=== PATIENT | female | born 1945 | race Caucasian/White ===

== ENCOUNTER 2016-07-12 17:34 | Emergency (ER) | payer BC ==
[~2016-07-12 17:34] MED LIST: ASAB PO; CARTIA XT120 MG/24 PO; CELEXA20 PO; COZ25 PO; DSS PO; ELIQUIS 5 MG TAB5 MG PO; FLECAINIDE50 MG PO; FLEX PO; LYRICA50 PO; METHOC500B OR; MEVACOR PO; NEUR400 PO; NEXIUM40 PO; NORV25 PO; P10 PO; ROXICODONE15 MG PO; SYN075 PO; VITAMIN D31000 UNIT PO; VOLTAREN1 % TOP; XANAX1 MG PO
[2016-07-12 18:13] LABS: BASOPHILS 0.6 %; BASOPHILS ABSOLUTE 0.04 10/3/uL (0.0-0.16); EOSINOPHILS 7.3 %; EOSINOPHILS ABSOLUTE 0.47 10/3/uL (0.0-0.53); ER CBC TAT 0 Hrs 05 Mins; HEMATOCRIT 40.5 % (36.0-48.0); HEMOGLOBIN 12.8 g/dL (12.0-16.0); IMMATURE GRANULOCYTES 0.2 %; IMMATURE GRANULOCYTES ABSOLUTE 0.01 10/3/uL (0.0-0.11); LYMPHOCYTES 23.5 %; LYMPHOCYTES ABSOLUTE 1.52 10/3/uL (0.67-4.30); MEAN CORPUS HGB CONC 31.6 g/dL (32.0-36.0); MEAN CORPUSCULAR HEMOGLOB 30.5 pg (26.0-34.0); MEAN CORPUSCULAR VOLUME 96.4 fL (80-100); MEAN PLATELET VOLUME 10.3 fL (9.2-13.0); MONOCYTES 8.3 %; MONOCYTES ABSOLUTE 0.54 10/3/uL (0.21-1.20); NEUTROPHILS 60.1 %; NEUTROPHILS ABSOLUTE 3.89 10/3/uL (2.02-8.40); PLATELET COUNT 204 10/3/uL (150-400); RBC DISTRIBUTION WIDTH 15.6 % (12.0-16.0); WHITE BLOOD CELLS 6.5 10/3/uL (4.5-10.5)
[2016-07-12 18:14] LABS: MANUAL DIFF NO %
[2016-07-12 18:24] LABS: INTERNATIONAL NORMAL RATI 1.4 UNITS (-); PARTIAL THROMBO TIME 30.9 SEC (22.5-37.2)
[2016-07-12 18:25] LABS: PROTIME (NOT ORD) 17.1 SEC (12.0-14.5)
[2016-07-12 18:28] LABS: BUN (BLOOD UREA NITROGEN) 35 MG/DL (6-23); CALCIUM, SERUM 8.9 MG/DL (8.5-10.4); CHEST PAIN PROFILE TAT 0 Hrs 20 Mins; CHLORIDE, SERUM 101 MMOL/L (96-112); CO2 (CARBON DIOXIDE) 31 MMOL/L (24-34); CREATININE 3.44 MG/DL (0.55-1.02); GFR AFRICAN AMERICAN 15 ML/MIN (>=60); GFR NON AFRICAN AMERICAN 13 ML/MIN (>=60); GLUCOSE, SERUM 101 MG/DL (60-99); SODIUM, SERUM 141 MMOL/L (135-148); TROPONIN I <0.02 NG/ML (<0.05)
[2016-07-13] MEDS ORDERED: COZ25 PO (15:07)
[2016-07-13] MEDS ORDERED: PROAIR HFA INH (15:10)
[2016-07-13] MEDS ORDERED: SYN075 PO (15:10)
[2016-07-13] MEDS ORDERED: CLINDA150 PO (15:12)
[2016-07-13] MEDS ORDERED: HYDROCHLOROT12.5 MG PO (15:13)
[2016-07-13] MEDS ORDERED: IBU800 PO (15:13)
== END 2016-07-12 22:04 | disposition left against medical advice (07) ==
LOC: ER 17:34
PROVIDERS: Emergency Medicine
DX: Z53.21 Procedure and treatment not carried out due to patient leaving prior to being seen by health care provider (principal)
CPT/HCPCS: 71020; 80048; 83735; 84484; 85025; 85610; 85730; 93005

== ENCOUNTER 2016-07-13 10:13 | Inpatient (IN) | payer BC ==
--- NOTE | ~2016-07-13 | DS ---
Discharge Summary [facility] [address] [place]. [address] NAME: LISA LANG : 47 STATUS : ADM IN [facility]#: [id number] AGE: 71 ADM/REG DATE : 07/13/16 MR#: [id number] REPORT SERV DATE: 07/16/16 DICTATED BY: FIORDALIZA SCHNEIDER DATE: 07/16/16 REPORT STATUS : Draft TRANSCRIBED BY: MODL DATE: 07/16/16 ADMISSION DATE: 07/13/2016 DISCHARGE DATE: 07/16/2016 FINAL HOSPITAL DIAGNOSES: 1. Acute kidney injury, felt secondary to medications, probably ibuprofen. 2. Back and neck pain, acute on chronic, resolved. 3. Bronchitis. 4. Low hemoglobin, felt to be lab error. 5. Elevated D-dimer. The patient on chronic anticoagulants, felt to be not clinically significant and due to her acute kidney injury. PROCEDURES: 1. CT scan of the brain done on 07/13/2016 showing periventricular leukoencephalopathy, no acute intracranial hemorrhage. This was in an addendum report. There was mild cerebral and cerebellar atrophy. CT chest without contrast showing no acute intrathoracic or intraabdominal process identified. No abnormal fluid collection. CT abdomen and pelvis done on 07/13/2016 showing no acute intraabdominal process identified. 2. Renal ultrasound done on 07/14/2016 noting increased renal cortical echotexture, equalized with the liver, compatible with component of medical renal disease. No obstruction or hydronephrosis is seen on either side. Smaller size of the left kidney may be congenital variant or related to previous insult. CURRENT PHYSICAL FINDINGS AND HISTORY OF PRESENT ILLNESS: Please see dictated H and P by myself. In brief, the patient is a 71-year-old female who presented to the emergency department with complaint of acute kidney injury, back and neck pain, and drop in her hemoglobin. Vital signs at the time of admission, blood pressure was 94/60, subsequent blood pressures were in the 100s/50s, returning to normal numbers on 07/14/2016. No fever during her hospital stay. No tachycardia noted. Average heart rate was in the 60s to 70s. LABORATORY DATA: Her first creatinine was 3.44, this was done on the evening of 07/12/2016. Subsequent creatinines were 3.81 on 07/13/2016; 2.89 on 07/14/2016; 1.26 on 07/15/2016; and 1.19 on 07/16/2016. No other significant electrolyte abnormalities or hyperkalemia were noted. Troponins were less than 0.02 x3. BNP was 256.5. CBC showed a normal white count on multiple draws. Initial hemoglobin was 12.8 on 07/12/2016; 9.5 on 07/13/2016; 13 on a recheck 2 hours later on 07/13/2016; and 11.1 and 11.3 on 07/14/2016 and 07/16/2016, respectively. D-dimer was mildly elevated at 0.7 with a normal of 0.5. HOSPITAL COURSE: The patient had come up to the emergency room on 07/12/2016 feeling ill. She did have lab work done but did not stay for a physician visit. She returned on 07/13/2016 and was noted to have complaints of back and neck pain. The kidney function was noted and her hemoglobin was actually markedly decreased from her initial presentation the evening before. She did undergo full CT scan without contrast, and her repeat hemoglobin was actually more in line with her norm, suggesting that the 9.5 was a lab error. However, on addressing her renal function, she had been taking some 800 mg of ibuprofen, the majority Discharge Summary [address] [address] NAME: LISA LANG : 47 STATUS : ADM IN PAT#: [id number] AGE: 71 ADM/REG DATE : 07/13/16 MR#: [id number] REPORT SERV DATE: 07/16/16 DICTATED BY: FIORDALIZA SCHNEIDER DATE: 07/16/16 REPORT STATUS : Draft TRANSCRIBED BY: DELORIS DATE: 07/16/16 of a bottle for her pain. The patient was admitted. She was started on IV fluids. Any potentially nephrotoxic agents were held. Her Cardizem was reduced as her blood pressure was low, but fortunately had no uncontrolled atrial fibrillation. The patient's renal function started to improve. Her pain started to improve and she was overall doing better. There were no signs of obstruction or secondary problem for her renal insufficiency. Her Eliquis was temporarily held; however, when her H and H were known stable and her kidney function was improving, it was restarted. Her Cardizem was also titrated back up, but her NSAIDs and ARB were not re-initiated. Through the course of the patient's hospital stay, again, she had no problems with her fibrillation, her neurological symptoms completely resolved, her renal function normalized, her blood pressures remained stable, and she was felt stable for discharge. DISPOSITION: She is discharged home. DISCHARGE INSTRUCTIONS: News medications are doxycycline 100 b.i.d. for some bronchitis symptoms she has been having, Eliquis 5 b.i.d., Celexa 20, Cardizem 120 b.i.d., flecainide 50 b.i.d., Synthroid 75, Mevacor 20, Nexium 40, Percocet 15 four times a day, Voltaren gel topical p.r.n., Xanax 1 mg t.i.d., Neurontin 400 t.i.d., vitamin D3 at 1000 daily, ProAir inhaler, hydrochlorothiazide 12.5 p.r.n. She will not resume her Cozaar 25 at this time. She will not resume her clindamycin. She will not resume her ibuprofen. I have asked her to set a followup appointment with Dr. Walsh. I am not certain if she is on the ARB for hypertension or heart failure. I have asked her to follow up with her PCP, Dr. Conklin, to make sure her renal function remains stable. There does not seem to be a secondary process involved, but if she is placed back on her ARB and her creatinine worsens, she may have some secondary pathology. She is to return for any recurrent symptoms. TLF/MODL Fiordaliza Schneider M.D. / [id number] CC: Varghese Vasquez M.D.
--- NOTE | ~2016-07-13 | HP ---
History And Physical [facility] [id number] [place]. [address] NAME: LISA LANG : 47 STATUS : ADM IN [facility]#: [id number] AGE: 71 ADM/REG DATE : 07/13/16 MR#: [id number] REPORT SERV DATE: 07/13/16 DICTATED BY: FIORDALIZA SCHNEIDER DATE: 07/13/16 REPORT STATUS : Draft TRANSCRIBED BY: MODL DATE: 07/13/16 DATE OF ADMISSION: 07/13/2016 CHIEF COMPLAINT: Back and neck pain. HISTORY OF PRESENT ILLNESS: The patient is a 71-year-old female. She has a past medical history significant for atrial fib, chronic back pain, and recent removal of a melanoma. She presented to the emergency department last evening with complaint of onset of back pain. She states her symptoms began around 4:00 a.m. yesterday morning. She woke up with pain in her back, which seemed to go up into her neck, much more intense than her normal back pain now that she has. She was hoping her pain would go away. She waited at home several hours. When it did not resolve, she presented to the emergency department here. The patient reports having had lab work and x-rays, but she did not stay to be seen. She decided to go back home and make an appointment with her physician this morning. When she went to her physician's office, she states they felt she was pale, ill. She complained of dizziness and the level of pain, so they referred her back to the emergency room. On evaluation here, she was initially noted to have a low hemoglobin of 9.5 and an elevated D-dimer of 0.7. She was also noted on her lab work last evening and today to be in acute renal failure with a creatinine in excess of 3 with previous normal numbers back in April at least here. Repeat hemoglobin was normal. CT scans did not show any evidence of obvious bleed or obvious neurological abnormality. The patient currently feels better. Her symptoms are not completely resolved. She still has some tolerable back and neck pain, and she states she is having some difficulty swallowing, although she states that has been going on for the past several days, and remotely has had some dysphagia over a longer period of time. 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 She has transiently noted some low blood pressure and dizziness also. PAST MEDICAL HISTORY: As covered above. PAST SURGICAL HISTORY: Hip surgery, pacemaker placement, back surgery from Dr. Trivedi, hysterectomy, melanoma removal, and cataract. CURRENT MEDICATIONS: Albuterol inhaler, Xanax 1 mg t.i.d., Eliquis 5 b.i.d., vitamin D 1000, Celexa 20, clindamycin 300 t.i.d. x7 days, Voltaren gel, Cartia XT 120 b.i.d., Nexium 40, flecainide 50 every 12 hours, Neurontin 400 t.i.d., hydrochlorothiazide 12.5, Motrin 800 t.i.d., Synthroid 75, Cozaar 25, Mevacor 20, Percocet 15 four times a day. ALLERGIES: PENICILLIN AND SULFA. FAMILY HISTORY: Both parents . Mother had heart problems. Father from a gunshot wound. SOCIAL HISTORY: She is a nondrinker and nonsmoker. History And Physical [address] [address] NAME: LISA LANG : 47 STATUS : ADM IN [facility]#: [id number] AGE: 71 ADM/REG DATE : 07/13/16 MR#: [id number] REPORT SERV DATE: 07/13/16 DICTATED BY: FIORDALIZA SCHNIEDER DATE: 07/13/16 REPORT STATUS : Draft TRANSCRIBED BY: DELORIS DATE: 07/13/16 REVIEW OF SYSTEMS: HEENT: Dizziness, dysphagia. CARDIOVASCULAR: No chest pain, palpitations. PULMONARY: No shortness of breath. GI: No nausea or vomiting. : She reports no dysuria or difficulty voiding. NEUROMUSCULOSKELETAL: As covered in HPI. Otherwise, review of systems is negative. PHYSICAL EXAMINATION: VITAL SIGNS: BP initially was 100/57, temperature 97.7, respirations 16, pulse 72, sat 96%. GENERAL: She is awake, alert, oriented, coherent, verbal, no acute distress. HEENT: Normocephalic, atraumatic. Sclerae nonicteric. NECK: Supple. HEART: Regular rate and rhythm. LUNGS: Clear to auscultation. ABDOMEN: Nontender, nondistended. EXTREMITIES: Without edema. No signs of obvious DVT. NEUROLOGICAL: She has normal mentation. Grossly normal cranial nerves. EXTREMITIES: Moves all extremities. LABORATORY DATA: Sodium 142, potassium 5.1, chloride 106, CO2 of 27, BUN and creatinine 41 and 3.81, glucose 88, troponin is 0.02. Creatinine was 1.42 in April. White count 6, H and H 13 and 40 with platelets 146. D-dimer was slightly elevated at 0.7. CT head showed per the ER physician, no blood, no grossly abnormal findings. Radiology is going to clarify CT report, which dictates no bleeding in the body of the report and noted bleeding on the impression, which is felt to be a typo. CT of the abdomen and pelvis was negative. Chest x ray showed mild vascular fullness, otherwise unremarkable. EKG shows atrial fibrillation and paced rhythm. ASSESSMENT AND PLAN: 1. Concerning her neurological symptoms, it does not sound like acute cerebrovascular accident or transient ischemic attack. She does not believe she has a MRI compatible pacemaker, but we will request records from [facility] to confirm. She, nevertheless, has been greater than a day with symptoms outside of the acute window. 2. Concerning her acute kidney injury, she has really not described voiding difficulty or significant decrease in intake. We will check a bladder scan. We will check a urinalysis, IV fluids. Hold her losartan and her any nephrotoxic agents and repeat. We will also monitor her blood pressure. 3. Concerning her back pain, reasonable treatment, we will consult Orthopedics if continues. 4. Concerning her mildly elevated D-dimer, she is very clear that her pain was not chest and not associated with shortness of breath. She states, it was low back, radiating up to her spine and back. I think her mildly elevated D-dimer is just secondary to her elevated creatinine. 5. Further recommendations pending clinical course. History And Physical [address] [place]. [address] NAME: LISA LANG : 47 STATUS : ADM IN [facility]#: [id number] AGE: 71 ADM/REG DATE : 07/13/16 MR#: [id number] REPORT SERV DATE: 07/13/16 DICTATED BY: FIORDALIZA SCHNEIDER DATE: 07/13/16 REPORT STATUS : Draft TRANSCRIBED BY: MODL DATE: 07/13/16 TLF/MODL Fiordaliza Schneider M.D. / [id number] CC: Luke Conklin M.D.
--- NOTE | ~2016-07-13 | DS ---
Discharge Summary [facility] [id number] [facility] [place]. [address] NAME: LISA LANG : 47 STATUS : ADM IN PAT#: [id number] AGE: 71 ADM/REG DATE : 07/13/16 MR#: [id number] REPORT SERV DATE: 07/16/16 DICTATED BY: FIORDALIZA SCHNEIDER DATE: 07/16/16 REPORT STATUS : Draft TRANSCRIBED BY: MODL DATE: 07/16/16 ADMISSION DATE: 07/13/2016 DISCHARGE DATE: ADDENDUM: To discharge summary #[id number]. TLF/MODL Fiordaliza Schneider M.D. / [id number] CC: Varghese Vasquez M.D. Joseph Powers, M.D.
[2016-07-13 11:58] LABS: BASOPHILS 0.2 %; BASOPHILS ABSOLUTE 0.01 10/3/uL (0.0-0.16); EOSINOPHILS 5.5 %; EOSINOPHILS ABSOLUTE 0.33 10/3/uL (0.0-0.53); ER CBC TAT 0 Hrs 08 Mins; LYMPHOCYTES 19.1 %; LYMPHOCYTES ABSOLUTE 1.15 10/3/uL (0.67-4.30); MEAN CORPUS HGB CONC 30.9 g/dL (32.0-36.0); MEAN CORPUSCULAR HEMOGLOB 30.7 pg (26.0-34.0); MEAN PLATELET VOLUME 10.4 fL (9.2-13.0); MONOCYTES ABSOLUTE 0.42 10/3/uL (0.21-1.20); NEUTROPHILS 68.2 %; PLATELET COUNT 146 10/3/uL (150-400); RBC DISTRIBUTION WIDTH 15.5 % (12.0-16.0)
[2016-07-13 12:02] LABS: HEMATOCRIT 30.7 % (36.0-48.0); HEMOGLOBIN 9.5 g/dL (12.0-16.0); RED CELL COUNT 3.09 10/6/uL (4.0-5.6)
[2016-07-13 12:03] LABS: INTERNATIONAL NORMAL RATI 1.5 UNITS (-); MANUAL DIFF NO %; MEAN CORPUSCULAR VOLUME 99.4 fL (80-100); PROTIME (NOT ORD) 18.4 SEC (12.0-14.5)
[2016-07-13 12:04] LABS: PARTIAL THROMBO TIME 32.6 SEC (22.5-37.2)
[2016-07-13 12:20] LABS: CHEST PAIN PROFILE TAT 0 Hrs 30 Mins; TROPONIN I 0.02 NG/ML (<0.05)
[2016-07-13 12:56] LABS: POTASSIUM, SERUM 5.1 MMOL/L (3.5-5.3); SODIUM, SERUM 142 MMOL/L (135-148)
[2016-07-13 12:57] LABS: BUN (BLOOD UREA NITROGEN) 41 MG/DL (6-23); CALCIUM, SERUM 7.7 MG/DL (8.5-10.4); CHLORIDE, SERUM 106 MMOL/L (96-112); CO2 (CARBON DIOXIDE) 27 MMOL/L (24-34); CREATININE 3.81 MG/DL (0.55-1.02); GFR AFRICAN AMERICAN 13 ML/MIN (>=60); GFR NON AFRICAN AMERICAN 11 ML/MIN (>=60); GLUCOSE, SERUM 88 MG/DL (60-99)
[2016-07-13 13:58] LABS: HEMATOCRIT 40.8 % (36.0-48.0)
[2016-07-13] MEDS ORDERED: COZ25 PO (15:07)
[2016-07-13] MEDS ORDERED: SYN075 PO (15:10)
[2016-07-13] MEDS ORDERED: PROAIR HFA INH (15:10)
[2016-07-13] MEDS ORDERED: CLINDA150 PO (15:12)
[2016-07-13] MEDS ORDERED: HYDROCHLOROT12.5 MG PO (15:13)
[2016-07-13] MEDS ORDERED: IBU800 PO (15:13)
[2016-07-13 23:52] LABS: TROPONIN I <0.02 NG/ML (<0.05)
[2016-07-14 06:43] LABS: BUN (BLOOD UREA NITROGEN) 40 MG/DL (6-23); CALCIUM, SERUM 8.3 MG/DL (8.5-10.4); CHLORIDE, SERUM 107 MMOL/L (96-112); CO2 (CARBON DIOXIDE) 28 MMOL/L (24-34); GFR AFRICAN AMERICAN 18 ML/MIN (>=60); GFR NON AFRICAN AMERICAN 16 ML/MIN (>=60); GLUCOSE, SERUM 96 MG/DL (60-99); POTASSIUM, SERUM 4.5 MMOL/L (3.5-5.3); SODIUM, SERUM 143 MMOL/L (135-148); TROPONIN I <0.02 NG/ML (<0.05)
[2016-07-14 06:44] LABS: CREATININE 2.89 MG/DL (0.55-1.02)
[2016-07-14 15:59] LABS: BASOPHILS 1.4 %; BASOPHILS ABSOLUTE 0.07 10/3/uL (0.0-0.16); EOSINOPHILS 10.3 %; EOSINOPHILS ABSOLUTE 0.53 10/3/uL (0.0-0.53); HEMATOCRIT 34.8 % (36.0-48.0); HEMOGLOBIN 11.1 g/dL (12.0-16.0); IMMATURE GRANULOCYTES 0.2 %; IMMATURE GRANULOCYTES ABSOLUTE 0.01 10/3/uL (0.0-0.11); LYMPHOCYTES 25.7 %; LYMPHOCYTES ABSOLUTE 1.32 10/3/uL (0.67-4.30); MANUAL DIFF NO %; MEAN CORPUS HGB CONC 31.9 g/dL (32.0-36.0); MEAN CORPUSCULAR HEMOGLOB 31.4 pg (26.0-34.0); MEAN CORPUSCULAR VOLUME 98.6 fL (80-100); MEAN PLATELET VOLUME 10.5 fL (9.2-13.0); MONOCYTES 10.1 %; MONOCYTES ABSOLUTE 0.52 10/3/uL (0.21-1.20); NEUTROPHILS 52.3 %; NEUTROPHILS ABSOLUTE 2.68 10/3/uL (2.02-8.40); PLATELET COUNT 178 10/3/uL (150-400); RBC DISTRIBUTION WIDTH 15.4 % (12.0-16.0); RED CELL COUNT 3.53 10/6/uL (4.0-5.6); WHITE BLOOD CELLS 5.1 10/3/uL (4.5-10.5)
[2016-07-15 07:48] LABS: BUN (BLOOD UREA NITROGEN) 27 MG/DL (6-23); CALCIUM, SERUM 8.8 MG/DL (8.5-10.4); CHLORIDE, SERUM 112 MMOL/L (96-112); CO2 (CARBON DIOXIDE) 27 MMOL/L (24-34); CREATININE 1.26 MG/DL (0.55-1.02); GFR AFRICAN AMERICAN 50 ML/MIN (>=60); GFR NON AFRICAN AMERICAN 43 ML/MIN (>=60); GLUCOSE, SERUM 89 MG/DL (60-99); POTASSIUM, SERUM 4.5 MMOL/L (3.5-5.3); SODIUM, SERUM 147 MMOL/L (135-148)
[2016-07-16 07:00] LABS: BASOPHILS 0.9 %; BASOPHILS ABSOLUTE 0.05 10/3/uL (0.0-0.16); EOSINOPHILS 7.5 %; EOSINOPHILS ABSOLUTE 0.44 10/3/uL (0.0-0.53); HEMOGLOBIN 11.3 g/dL (12.0-16.0); LYMPHOCYTES 26.8 %; LYMPHOCYTES ABSOLUTE 1.57 10/3/uL (0.67-4.30); MANUAL DIFF NO %; MEAN CORPUS HGB CONC 32.3 g/dL (32.0-36.0); MEAN CORPUSCULAR VOLUME 96.2 fL (80-100); MEAN PLATELET VOLUME 10.7 fL (9.2-13.0); MONOCYTES 6.5 %; MONOCYTES ABSOLUTE 0.38 10/3/uL (0.21-1.20); NEUTROPHILS 58.3 %; NEUTROPHILS ABSOLUTE 3.42 10/3/uL (2.02-8.40); PLATELET COUNT 187 10/3/uL (150-400); RBC DISTRIBUTION WIDTH 15.3 % (12.0-16.0); RED CELL COUNT 3.64 10/6/uL (4.0-5.6); WHITE BLOOD CELLS 5.9 10/3/uL (4.5-10.5)
[2016-07-16 07:11] LABS: CALCIUM, SERUM 9.1 MG/DL (8.5-10.4); CHLORIDE, SERUM 112 MMOL/L (96-112); CO2 (CARBON DIOXIDE) 28 MMOL/L (24-34); CREATININE 1.19 MG/DL (0.55-1.02); GFR AFRICAN AMERICAN 54 ML/MIN (>=60); GFR NON AFRICAN AMERICAN 46 ML/MIN (>=60); GLUCOSE, SERUM 93 MG/DL (60-99); POTASSIUM, SERUM 4.3 MMOL/L (3.5-5.3); SODIUM, SERUM 147 MMOL/L (135-148)
[2016-07-16 07:12] LABS: BUN (BLOOD UREA NITROGEN) 23 MG/DL (6-23)
[2016-07-16] MEDS ORDERED: MONODOX100 MG PO (14:52)
== END 2016-07-16 18:53 | disposition home or self-care (01) | DRG 684 ==
LOC: ER 10:13 → 4SO 16:43
PROVIDERS: Emergency Medicine; Internal Medicine
DX: N17.9 Acute kidney failure, unspecified (principal); I48.2 Chronic atrial fibrillation; T39.315A Adverse effect of propionic acid derivatives, initial encounter; Y92.009 Unspecified place in unspecified non-institutional (private) residence as the place of occurrence of the external cause; J40 Bronchitis, not specified as acute or chronic; Z79.01 Long term (current) use of anticoagulants; M54.9 Dorsalgia, unspecified; M54.2 Cervicalgia
CPT/HCPCS: 70450; 71010; 71250; 74176; 76775; 80048; 83735; 83880; 84443; 84484; 85014; 85018; 85025; 85379; 85610; 85730; 93005; 94640; 99291; A9270-GY; G0378